=== PATIENT | female | born 1950 | race Caucasian/White ===

== ENCOUNTER 2016-11-11 14:18 | Emergency (ER) | payer MEDICARE ==
--- NOTE | ~2016-11-11 | CR72 ---
[facility] A Service of [facility] RADIOLOGY TEXT RESULTS PATIENT: ELENA SALAZAR LOCATION: [facility] : 50 UNIT #: [id number] AGE: [address]: Janie Hinkle MD SEX: F ORDER DR: [id number] [facility] [address] [place], [place] [address] [id number] MR#: [id number] Acc #: [id number] NAME: ELENA SALAZAR : 1950 SEX: F STUDY DATE/TIME: 11/11/2016 13:38 UNIT: [facility] ROOM: STUDY DESCRIPTION: CR Chest Single View Portable Attending Physician: Janie Hinkle M.D. Ordering Physician: Janie Hinkle M.D. Primary Care Physician: Edilson Barajas M.D. MEDICAL IMAGING REPORT This report is preliminary unless electronic signature is present EXAM Portable chest. DATE OF EXAM 11/11/2016 INDICATIONS 66-year-old female with history of fever, cough, shortness of breath for 4 days. COMPARISON No comparisons. FINDINGS There is atelectasis or consolidation in the medial left base. Heart size probably within normal limits for technique. Degenerative changes of the shoulders. IMPRESSION Atelectasis or consolidation within the medial left base. Dictated by... John Bird M.D. THIS IS AN ELECTRONICALLY VERIFIED REPORT John Bird M.D. at 11/13/2016 10:44 AM FEDERICO/maria t TD: 11/11/2016 18:20 JOB #: [id number] MEDICAL IMAGING REPORT [facility] A Service [facility] RADIOLOGY TEXT RESULTS PATIENT: ELENA SALAZAR LOCATION: [facility] : [birth year] UNIT #: [id number] AGE: [address]: Janie Hinkle MD SEX: F ORDER DR: ADRIENNE
[2016-11-11 14:03] LABS: INFLUENZA A POS (NEG); INFLUENZA B NEG (NEG)
== END 2016-11-11 15:03 | disposition home or self-care (01) ==
LOC: CED 14:18
PROVIDERS: Student in an Organized Health Care Education/Training Program
DX: J10.1 Influenza due to other identified influenza virus with other respiratory manifestations (principal); I10 Essential (primary) hypertension; I50.9 Heart failure, unspecified; Z90.710 Acquired absence of both cervix and uterus
CPT/HCPCS: 71010; 87651; 87804; 99283